=== PATIENT | female | born 1970 | race Caucasian/White ===

== ENCOUNTER 2016-06-14 19:39 | Emergency (ER) | payer MEDICAID ==
[~2016-06-14] VITALS: Ht 165.1 cm; Wt 107.0 kg
[~2016-06-14 19:39] MED LIST: ACET1TAB40 PO; IBUP-1542 PO; ULT50 PO
[2016-06-14 19:40] VITALS: Ht 165.1 cm; Wt 107.0 kg
[2016-06-14] MEDS ORDERED: NAPR-260 PO (21:20)
--- NOTE | 2016-06-14 23:04 | ERD ---
ER Documentation Chief Complaint Date/Time DATE: 06/14/16 TIME: 22:59 Chief Complaint upper back pain radiating to her sides & lower belly, on/off x 2 months HPI This is a 46-year-old female with history of HTN presenting to the emergency room complaining of umbilical hernia pain for 6 months and upper back pain for the past 2 weeks. Patient states that she feels as if her back hurts due to her abdomen feeling like it is heavy. Patient states that she has an umbilical hernia that got bigger 6 months ago. Patient states that she has followed up with a primary care physician and she states they told her nothing. Patient denies taking any medications for this. Denies any shortness of breath, chest pain ROS All systems reviewed and are negative except as per history of present illness. Medications Home Meds Active Scripts Naproxen* (Naprosyn*) 500 Mg Tablet, 500 MG PO BID Y for PAIN AND/OR INFLAMMATION, #30 TAB Prov:IVIS ROSE PA-C 06/14/16 Acetaminophen-Codeine* (Acetaminophen-Cod #3*) 300-30 Mg Tab, 1 TAB PO Q4H Y for PAIN, #15 TAB Prov:GABRIELE SIBLEY NP 07/23/15 Tramadol HCl (Tramadol HCl) 50 Mg Tab, 50 MG PO Q4 Y for PAIN, #14 TAB Prov:EDISON PARRA MD 04/05/15 Ibuprofen* (Motrin*) 600 Mg Tab, 600 MG PO Q6, #20 TAB Prov:EDISON PARRA MD 04/05/15 Allergies Allergies: Coded Allergies: No Known Allergy (Unverified , 10/08/14) PMhx/Soc History of Surgery: Yes (c/s) Anesthesia Reaction: No Hx Neurological Disorder: No Hx Respiratory Disorders: No Hx Cardiac Disorders: Yes (htn) Hx Psychiatric Problems: No Hx Miscellaneous Medical Probl: No Hx Alcohol Use: No Hx Substance Use: No Hx Tobacco Use: No Physical Exam Vitals Vital Signs Date Time Temp Pulse Resp B/P Pulse Ox O2 Delivery O2 Flow Rate FiO2 06/14/16 19:40 97.3 67 18 172/73 99 Physical Exam GENERAL: WD/WN, in no apparent distress, non-toxic appearing HENT: NC/AT EYES: Conjunctiva normal NECK: Supple PULM: Normal labored breathing CV: Good capillary refill GI: 6cm umbilical hernia that was reducible, tenderness to palpation BACK: no deformities noted, normal spinal curvature, TTP on thoracic region, non -tender on spine midline, normal anal wink, EXT: No clubbing, cyanosis, or edema NEURO: Moves on all fours, sensation intact, normal gait SKIN: intact PSYCH: Normal mood Procedures/MDM This is a 46-year-old female with history of HTN presenting to the emergency room complaining of umbilical hernia pain for 6 months and upper back pain for the past 2 weeks. Patient states that she feels as if her back hurts due to her abdomen feeling like it is heavy. Patient states that she has an umbilical hernia that got bigger 6 months ago. Patient has William follow up with her primary care physician, I discussed with patient that she will need to follow- up with her primary physician again and get a referral to see a surgeon to get her umbilical hernia repaired. Patient likely has thoracic back strain. She appears well, she is ambulating well. I have a low suspicion for strain related or incarcerated hernia. Patient be given prescription for naproxen to follow-up with her primary care physician. She understands and agrees with this plan Departure Diagnosis: Primary Impression: Strain of thoracic region Additional Impression: Umbilical hernia Condition: Stable Patient Instructions: Hernia (Inguinal, Ventral, Umbilical), Thoracic Strain [facility] Usted se larry hecho un examen mdico de control que le indica que no est en rosemarie condicin que requiera tratamiento urgente en el Departamento de Emergencia. Un estudio ms profundo y el tratamiento de fu condicin pueden esperar sin ningn riesgo hasta que usted sea atendida/o en el consultorio de fu mdico o rosemarie cl ashley. Es responsabilidad suya arreglar rosemarie kaye para el seguimiento del damian. MANEJO DE CONDICIONES NO URGENTES EN EL FUTURO 1) Si usted tiene un mdico de atencin primaria: Usted debera llamar a fu mdico de atencin primaria antes de venir al departamento de emergencia. Despus de las horas de consultorio, fu doctor o fu asociado/a est disponible por telfono. El mdico o enfermero de kay en el servicio telefnico puede asesorarle por justus medio para atender el problema, o damian contrario se puede programar rosemarie kaye. 2) Si usted no tiene un mdico de atencin primaria: Llame al mdico o clnica de referencia que aparece abajo carlene las horas de consultorio para hacer rosemarie kaye para que le vean. CLINICAS: [facility] [phone] [facility] [phone] [facility] [phone] [place] [address] [phone] [place] [address] [phone] [place] [id number] [phone] Additional Instructions: Visite a fu mdico maana para un EXAMEN.Regrese a estas instalaciones si no se mejora manda esperbamos o manda le dijimos. [place] [employer] toda la medicina david y manda se le indic. Regrese a estas instalaciones si no se mejora manda esperbamos o manda le dijimos. IVIS ROSE PA-C Jun 14, 2016 23:03
== END 2016-06-14 21:30 | disposition home or self-care (01) ==
LOC: FTE 19:39
DX: S39.012A Strain of muscle, fascia and tendon of lower back, initial encounter (principal); I10 Essential (primary) hypertension; K42.9 Umbilical hernia without obstruction or gangrene; X58.XXXA Exposure to other specified factors, initial encounter; Y92.9 Unspecified place or not applicable
CPT/HCPCS: 99283

== ENCOUNTER 2017-06-22 16:47 | Inpatient (IN) | END 2017-06-23 11:30 | disposition home or self-care (01) | DRG 395 ==

== ENCOUNTER 2018-10-09 09:01 | Emergency (ER) | payer MEDICAID ==
[~2018-10-09] VITALS: Ht 167.6 cm; Wt 94.3 kg
[~2018-10-09 09:01] MED LIST changes: -ACET1TAB40 PO; -IBUP-1542 PO; +NAPR-985 PO; +TRAM50TA2 PO; -ULT50 PO
[2018-10-09 09:10] VITALS: BP 160/85; PULSE 63; RESP 18; Ht 167.6 cm; Wt 94.3 kg
[2018-10-09] MEDS ORDERED: KETOROLAC 30 MG INJ IM STA (09:42)
[2018-10-09] MEDS ORDERED: IBUP-1542 PO (09:43)
--- NOTE | 2018-10-09 10:11 | ERD ---
ER Documentation Chief Complaint Chief Complaint back pain x1wk, worse today HPI Patient is a 48-year-old female presents ER for concerns of lower back pain x1 week, which was worse today. Patient is she also has bilateral leg pain. Patient denies any falls or trauma. Pain is localized to the right lumbar spine. Patient has no associated saddle seizure, urine incontinence, stool incontinence, dysuria, frequency, urgency or hematuria. Patient has no chest pain or shortness of breath. Patient has no abdominal pain. Patient states she took naproxen which does help with her symptoms. ROS All systems reviewed and are negative except as per history of present illness. Medications Home Meds Active Scripts Ibuprofen* (Motrin*) 600 Mg Tab, 600 MG PO Q6, #30 TAB Prov:ALLEN BRAUN PA-C 10/09/18 Naproxen* (Naprosyn*) 500 Mg Tablet, 500 MG PO BID PRN for PAIN AND/OR INFLA MMATION, #30 TAB Prov:IVIS ROSE PA-C 06/14/16 Tramadol HCl (Tramadol HCl) 50 Mg Tab, 50 MG PO Q4 PRN for PAIN, #14 TAB Prov:EDISON PARRA MD 04/05/15 Allergies Allergies: Coded Allergies: No Known Allergy (Unverified , 10/08/14) PMhx/Soc Anesthesia Reaction: No Hx Neurological Disorder: No Hx Respiratory Disorders: No Hx Cardiac Disorders: Yes (HTN) Hx Psychiatric Problems: No Hx Miscellaneous Medical Probl: No Hx Alcohol Use: No Hx Substance Use: No Hx Tobacco Use: No Smoking Status: Never smoker FmHx Family History: No diabetes Physical Exam Vitals Vital Signs Date Temp Pulse Resp B/P (MAP) Pulse Ox O2 O2 Flow FiO2 Time Delivery Rate 10/09/18 97.7 63 18 160/85 100 09:10 (110) Physical Exam GENERAL: Well-developed, well-nourished female. Appears in no acute distress. Speaking in full sentences. HEAD: Normocephalic, atraumatic. EYES: Pupils are equally reactive bilaterally. EOMs grossly intact. No conjunctival erythema. ENT: Moist mucous membranes. No uvula deviation. No kissing tonsils. NECK: Supple. No meningismus. Normal range of motion of the neck. LUNG: Clear to auscultation bilaterally. No rhonchi, wheezing, rales or coarse breath sounds. HEART: Regular rate and rhythm. No murmurs, rubs or gallops. BACK: No midline tenderness. Tender to palpation of the right lumbar spine. EXTREMITIES: Equal pulses bilaterally. No peripheral clubbing, cyanosis or edema. No unilateral leg swelling. NEUROLOGIC: Alert and oriented. Moving all four extremities without any difficulty. Normal speech. Steady gait. SKIN: Normal color. Warm and dry. No rashes or lesions. Results 24 hrs Laboratory Tests Test 10/09/18 10:01 POC Beta HCG, Qualitative NEGATIVE Current Medications Medications Dose Sig/Jaci Start Time Status Last (Trade) Ordered Route PRN Stop Time Admin Dose Reason Admin Ketorolac 30 mg ONCE STAT 10/09/18 DC Tromethamine IM 09:42 (Toradol) 10/09/18 09:43 Procedures/MDM MEDICAL DECISION MAKING: This is a 48-year-old female who presents the ER for concerns of lower back pain and bilateral leg pain x1 week.. Vital signs were reviewed. Patient was afebrile. Patient denied any saddle anesthesia, urinary incontinence, bowel i ncontinence, night pain or recent trauma. On exam, patient did have tenderness to palpation in the right lumbar paraspinal muscles. Patient was given Toradol. Given these findings, the patient's presentation is most consistent with lumbar strain. I have a much lower clinical concern for cauda equine syndrome, spinal fractures, epidural abscess, spinal metastases, osteomyelitis, aortic dissection, ruptured or leaking AA, DJD, sciatica, pyelonephritis or nephrolithiasis. PRESCRIPTIONS: Ibuprofen DISCHARGE: At this time, patient is stable for discharge and outpatient management. RICE therapy and ROM exercises were advised to avoid stiffness. I have instructed the patient to follow-up with his/her primary care physician in 1-2 days. I have discussed with the patient the possibility of needing to see an podiatrist orthopedic for further workup and imaging if the pain persists. I have instructed the patient to promptly return to the ER for any new or worsening symptoms including increased pain, swelling, warmth, urinary incontinence, stool incontinence, weakness or numbness. The patient and/or family expressed understanding of and agreement with this plan. All questions were answered. Home care instructions were provided. Disclaimer: Inadvertent spelling and grammatical errors are likely due to EHR/dictation software use and do not reflect on the overall quality of patient care. Also, please note that the electronic time recorded on this note does not necessarily reflect the actual time of the patient encounter. Departure Diagnosis: Primary Impression: Back pain Back pain location: back pain in unspecified location Chronicity: unspecified Back pain laterality: unspecified Qualified Codes: M54.9 - Dorsalgia, unspecified Additional Impression: Bilateral foot pain Condition: Fair Patient Instructions: Back Pain (Acute Or Chronic) Referrals: [facility] YOU HAVE RECEIVED A MEDICAL SCREENING EXAM AND THE RESULTS INDICATE THAT YOU DO NOT HAVE A CONDITION THAT REQUIRES URGENT TREATMENT IN THE EMERGENCY DEPARTMENT. FURTHER EVALUATION AND TREATMENT OF YOUR CONDITION CAN WAIT UNTIL YOU ARE SEEN IN YOUR DOCTORS OFFICE WITHIN THE NEXT 1-2 DAYS. IT IS YOUR RESPONSIBILITY TO MAKE AN APPOINTMENT FOR FOLOW-UP CARE. IF YOU HAVE A PRIMARY DOCTOR --you should call your primary doctor and schedule an appointment IF YOU DO NOT HAVE A PRIMARY DOCTOR YOU CAN CALL OUR PHYSICIAN REFERRAL HOTLINE AT IF YOU CAN NOT AFFORD TO SEE A PHYSICIAN YOU CAN CHOSE FROM THE FOLLOWING [facility] [address] [facility]. [facility] [address] [facility] [facility] [address] [facility]. [facility] [address] [facility]. [facility] [address] [facility]. [facility]. [address] [facility]. [facility] YOU HAVE RECEIVED A MEDICAL SCREENING EXAM AND THE RESULTS INDICATE THAT YOU DO NOT HAVE A CONDITION THAT REQUIRES URGENT TREATMENT IN THE EMERGENCY DEPARTMENT. FURTHER EVALUATION AND TREATMENT OF YOUR CONDITION CAN WAIT UNTIL YOU ARE SEEN IN YOUR DOCTORS OFFICE WITHIN THE NEXT 1-2 DAYS. IT IS YOUR RESPONSIBILITY TO MAKE AN APPOINTMENT FOR FOLOW-UP CARE. IF YOU HAVE A PRIMARY DOCTOR --you should call your primary doctor and schedule and appointment IF YOU DO NOT HAVE A PRIMARY DOCTOR YOU CAN CALL OUR PHYSICIAN REFERRAL HOTLINE AT . IF YOU CAN NOT AFFORD TO SEE A PHYSICIAN YOU CAN CHOSE FROM THE FOLLOWING [facility]: [facility] [address] [place] [address] [facility] [address] [place] [address] [facility] [address] [place] [address] [facility] URGENT CARE/SPECIALTIES Additional Instructions: Llame al doctor MAANA y vitaly rosemarie RAD PARA DENTRO DE 1-2 ANDERSON.Dgale a la secretaria que nosotros le instruimos hacer esta rad.Avise o llame si fu condicin se empeora antes de la rad. Regresa aqui si peor o no mejor. ALLEN BRAUN PA-C October 09, 2018 10:11
== END 2018-10-09 10:21 | disposition home or self-care (01) ==
LOC: FTE 09:01
DX: M54.5 Low back pain (principal); I10 Essential (primary) hypertension; M79.671 Pain in right foot; M79.672 Pain in left foot
CPT/HCPCS: 81025; 96372; J1885; Z7502